=== PATIENT | female | born 1975 | race Two or more races ===

== ENCOUNTER 2023-01-21 10:02 | Emergency (ER) | payer OTHER ==
[~2023-01-21] VITALS: Ht 157.5 cm; Wt 69.1 kg
[2023-01-21 14:58] VITALS: BP 106/73; PULSE 82; RESP 16; TEMP 98.7; O2SAT 95
[2023-01-21] MEDS ORDERED: KETOROLAC TROMETH 60MG/2ML VIAL IM ONE (17:00)
[2023-01-21] MEDS ORDERED: IBUP1TAB5 PO (17:50)
[2023-01-21] MEDS ORDERED: CYCL-839 PO (17:50)
[2023-01-21] MEDS ORDERED: LIDO5PAD8 EX (17:52)
== END 2023-01-21 18:07 | disposition home or self-care (01) ==
LOC: ER 10:02
DX: M25.511 Pain in right shoulder (principal); M25.521 Pain in right elbow; X58.XXXA Exposure to other specified factors, initial encounter; Y93.89 Activity, other specified; Y92.89 Other specified places as the place of occurrence of the external cause; Y99.8 Other external cause status
CPT/HCPCS: 73030; 73080; 81025; 96372; 99284; J1885

== ENCOUNTER 2025-02-16 13:06 | Inpatient (IN) | payer MEDICAID ==
[~2025-02-16] VITALS: Ht 157.5 cm; Wt 57.4 kg
[~2025-02-16 13:06] MED LIST: CYCL-839 PO; DOCU-94 PO; FER325T PO; IBUP1TAB5 PO; LIDO5PAD12 EX; PANT40TA2 PO; POTA-36 PO; SUCR1SUS26 PO; ZOFR4T PO
--- NOTE | 2025-02-16 13:26 | ED.PDOC ---
GI ASSESSMENT HPI Comments This is a 49 year old female presenting to the ED with chief complaint of GI bleed. Patient reports that she has been experiencing hematemesis since Thursday after having an endoscopy performed along with associated melena for the past week. Patient denies any N/V/D, dizziness, fever, chills, chest pain, abdominal pain, SOB, or bloody stools. Chief Complaint: GI Bleed Time Seen by MD: 13:24 Primary Care Provider: NONE Reviewed Notes: Nurses Notes, Medications, Allergies Allergies: Coded Allergies: NO KNOWN ALLERGIES (Unverified , 01/21/23) Home Meds Active Scripts Potassium Chloride (POTASSIUM CHLORIDE CR) 10 Meq Tb, 10 MEQ PO DAILY for 30 Days, #30 TAB Prov:MARY SANDERSON 10/17/24 Ondansetron Odt 4MG Tab (ZOFRAN PO) 4 Mg Tb, 4 MG PO Q6HPRN PRN for 30 Days, #120 TAB ODT TAB-DISSOLVE IN MOUTH, THEN SWALLOW Prov:MARY SANDERSON 10/17/24 Docusate Sodium (Colace) 100 Mg Cap, 100 MG PO DAILY for 30 Days, #30 CAP Prov:MARY SANDERSON [facility] 10/17/24 Sucralfate (CARAFATE SUSP) 1 Gm/10 Ml Ss, 10 ML PO TIDWM for 30 Days, #600 ML 1 Refill Prov:MARY SANDERSON 10/17/24 Pantoprazole Sodium Sesquihydr (Protonix) 40 Mg Tab, 40 MG PO BID for 30 Days, #60 TAB Prov:MARY SANDERSON 10/17/24 Ferrous Sulfate (Ferrous Sulfate) 325 Mg Tab, 325 MG PO MWF for 90 Days, #36 TAB Prov:MARY SANDERSON [facility] 10/17/24 Lidocaine (Lidocaine Patch 5%) 5 % Pad, 1 APPLIC EX DAILY PRN, #30 PATCH 0 Refills Prov:MIKAEL PAGE [facility] 01/21/23 Ibuprofen Micronized (Ibuprofen) 600 Mg Tab, 600 MG PO Q8HPRN PRN, #30 TAB 0 Refills Prov:MIKAEL PAGE [facility] 01/21/23 Cyclobenzaprine Hcl (Cyclobenzaprine Hcl) 10 Mg Tab, 10 MG PO TID, #12 TAB 0 Refills Prov:MIKAEL PAGE [facility] 01/21/23 Information Source: Patient Mode of Arrival: Ambulatory Timing: Days Duration: Since onset Prehospital treatment: None Quality: None Vomitus: Bright Red Bood Stool: Blood Streaked Severity: Moderate Recent: None Recent Hx of: None Modifying Factors: Nothing Associated sign and symptoms: Hematemesis, Melena Past Medical History PAST MEDICAL HISTORY: Denies Surgical History (Other): Stomach surgery [employer] History: No Pertinent [employer] History Family History Family History: Reviewed,noncontributory to illness, Family hx of DM Social History Smoker: Non-Smoker Alcohol: Denies ETOH Use Drugs: Denies Drug Use Lives In: Home Constitutional: denies: chills, diaphoresis, fatigue, fever, malaise, sweats, weakness, others EENTM: denies: blurred vision, double vision, ear bleeding, ear discharge, ear drainage, ear pain, ear ringing, eye pain, eye redness, hearing loss, mouth pain, mouth swelling, nasal discharge, nose bleeding, nose congestion, nose pain, photophobia, tearing, throat pain, throat swelling, voice changes, others Respiratory: denies: cough, hemoptysis, orthopnea, SOB at rest, shortness of breath, SOB with excertion, stridor, wheezing, others Cardiovascular: denies: chest pain, dizzy spells, diaphoresis, Dyspnea on exertion, edema, irregular heart beat, left arm pain, lightheadedness, palpitations, PND, syncope, others Gastrointestinal: reports: hematemesis, melena; denies: abdomen distended, abdominal pain, blood streaked bowels, constipated, diarrhea, dysphagia, difficulty swallowing, nausea, poor appetite, poor fluid intake, rectal bleeding, rectal pain, vomiting, others Genitourinary: denies: abnormal vagina bleeding, burning, dyspareunia, dysuria, flank pain, frequency, hematuria, incontinence, pain, , vagina d ischarge, urgency, others Neurological: denies: dizziness, fainting, headache, left sided numbness, left sided weakness, numbness, paresthesia, pre-existing deficit, right sided numbness, right sided weakness, seizure, speech problems, tingling, tremors, weakness, others Musculoskeletal: denies: back pain, gout, joint pain, joint swelling, muscle pain, muscle stiffness, neck pain, others Integumetry: denies: bruises, change in color, change in hair/nails, dryness, laceration, lesions, lumps, rash, wounds, others Allergic/Immunocompromised: denies: Difficulty Healing, Frequent Infections, Hives, Itching, others Hematologic/Lymphatic: denies: anemia, blood clots, easy bleeding, easy bruising, swollen glands, others Endocrine: denies: excessive hunger, excessive sweating, excessive thirst, excessive urination, flushing, intolerance to cold, intolerance to heat, unexplained weight gain, unexplained weight loss, others Psychiatric: denies: anxiety, bipolar disorder, depression, hopeless, panic disorder, schizophrenia, sleepless, suicidal, others All Other Systems: Reviewed and Negative Physical Exam General Appearance: Moderate Distress HEENT: Normal ENT Inspection, Pharynx Normal, TMs Normal Neck: Full Range of Motion, Non-Tender, Normal, Normal Inspection Respiratory: Chest Non-Tender, Lungs Clear, No Accessory Muscle Use, No Respiratory Distress, Normal Breath Sounds Cardiovascular: No Edema, No JVD, No Murmur, No Gallop, Normal Peripheral Pulses, Regular Rate/Rhythm Breast Exam: Deferred Gastrointestinal: Diffuse, No Organomegaly, No Pulsatile Mass, Normal Bowel Sounds, Soft, Tenderness Genitalia: Deferred Pelvic: Deferred Rectal: Deferred Extremities: No calf tenderness, Normal capillary refill, Normal inspection, No rmal range of motion, Non-tender, No pedal edema Musculoskeletal : Apperance: Normal Neurologic: Alert, 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 Was a procedure done?: No GI differential Dx Differential Diagnosis: Gastritis/PUD, Gastroenteritis, Electrolyte Imbalance, Other (Upper GI bleed, lower GI bleed) X-Ray, Labs, Meds, VS Vital Signs Date Time Temp Pulse Resp B/P (MAP) Pulse Ox O2 Delivery O2 Flow Rate FiO2 02/16/25 13:08 97.9 92 19 116/83 97 97.9 Lab Test 02/16/25 13:46 Range/Units White Blood Count 6.7 4.4-10.8 10^3/uL Red Blood Count 3.97 L 4.0-5.20 10^6/uL Hemoglobin 10.8 L 12.2-16.2 g/dL Hematocrit 31.2 L 36.0-46.0 % Mean Corpuscular Volume 78.5 L 80.0-100.0 fL Mean Corpuscular Hemoglobin 27.2 L 28.0-32.0 pg Mean Corpuscular Hemoglobin Concent 34.7 32.0-36.0 g/dL Red Cell Distribution Width 17.0 H 11.8-14.3 % Platelet Count 326 140-450 10^3/uL Mean Platelet Volume 8.3 6.9-10.8 fL Neutrophils (%) (Auto) 68.7 37.0-80.0 % Lymphocytes (%) (Auto) 21.5 10.0-50.0 % Monocytes (%) (Auto) 8.0 0.0-12.0 % Eosinophils (%) (Auto) 1.0 0.0-7.0 % Basophils (%) (Auto) 0.8 0.0-2.0 % Neutrophils # (Auto) 4.6 1.6-8.6 10 ^3/uL Lymphocytes # (Auto) 1.4 0.4-5.4 10 ^3/uL Monocytes # (Auto) 0.5 0-1.3 10 ^3/uL Eosinophils # (Auto) 0.1 0-0.8 10 ^3/uL Basophils # (Auto) 0.1 0-0.2 10 ^3/uL Nucleated Red Blood Cells 0.1 % Prothrombin Time 10.9 9.3-11.8 sec Prothrombin Time INR 1.03 0.9-1.15 Activated Partial Thromboplast Time 26.7 24.5-34.5 SEC Sodium Level 144 136-145 mmol/L Potassium Level 3.6 3.5-5.1 mmol/L Chloride Level 109 H 98-107 mmol/L Carbon Dioxide Level 25 20-31 mmol/L Anion Gap 10 5-15 Blood Urea Nitrogen 15 9-23 mg/dL Creatinine 0.82 0.550-1.02 mg/dL Glomerular Filtration Rate Calc 87 >90 mL/min BUN/Creatinine Ratio 18.3 10.0-20.0 Serum Glucose 94 74-106 mg/dL Calcium Level 9.4 8.7-10.4 mg/dL CT Abd/Pel indicates: No evidence of Acute abdominopelvic abnormalities. Moderate size hiatal hernia with questionable postsurgical changes of the herniated stomach. The partially visualized distal esophagus is moderately distended and fluid-filled. Colonic diverticulosis without diverticulitis. Punctate nonobstructing left renal calculi. The patient's CBC shows anemia with a hemoglobin of 10.8 hematocrit of 31.2 The chemistry panel is within normal limits At this time, the patient is being admitted with a diagnosis of GI bleed and abdominal pain Images Reviewed?: Images reviewed and evaluated by me Time of 1ST Reevaluation: 15:59 Reevaluation 1ST: Unchanged Patient Education/Counseling: Diagnosis, Treatment, Prognosis Family Education/Counseling: No Family Present SEPSIS Sepsis Screen Date sepsis recognized/suspect: Feb 16, 2025 Time Sepsis recognized/suspect: 1312 Recent Procedure: No On Antibiotic Therapy: No Respiratory Rate >20: No Heart Rate >90: No Temp<36 C (96.8 F) or >38.3 C: No SBP <90 or MAP <65 mmHG: No New Acute Mental Status Change: No Is the patient on CPAP, BIPAP,: No Physician Orders Heplock Iv (02/16/25 13:29) Ct Ab Pel Wo Con-No Oral Or Iv (02/16/25 13:29) Vital Signs Date Time Temp Pulse Resp B/P (MAP) Pulse Ox O2 Delivery O2 Flow Rate FiO2 02/16/25 13:08 97.9 92 19 116/83 97 97.9 Laboratory Tests Test 02/16/25 13:46 White Blood Count 6.7 10^3/uL (4.4-10.8) Departure 1 Departure Time of Disposition: 16:00 Impression: Primary Impression: Acute abdominal pain Additional Impression: Upper GI bleed Disposition: ADMITTED INPATIENT Admit to: Med Surg Condition: Fair Critical Care Note Critical Care Time?: Yes (45 min-critical care time only) Stability Stability form required: Yes Unstable for transfer: ED Physician Assesment (Clinical assesment) Heart Score Heart Score: Heart Score Response (Comments) Value History N/A 0 EKG N/A 0 Age N/A 0 Risk Factors N/A 0 Troponin N/A 0 Total 0 I personally scribed for LUDMILA ABEL MD ([email or web address]) on 02/16/25 at 13:26. Electronically submitted by Jeronimo Dempsey ([email or web address]). I personally scribed for LUDMILA ABEL MD ([email or web address]) on 02/16/25 at 14:53. Electronically submitted by Jeronimo Dempsey ([email or web address]). LUDMILA ABEL MD Feb 16, 2025 13:26
[2025-02-16 14:05] LABS: Hematocrit 31.2 % (36.0-46.0); Hemoglobin 10.8 g/dL (12.2-16.2); Mean Corpuscular Hemoglobin 27.2 pg (28.0-32.0); Mean Corpuscular Volume 78.5 fL (80.0-100.0); Nucleated Red Blood Cells % 0.1 %
--- NOTE | 2025-02-16 14:05 | DVH ---
Exam: CT CT AB PEL WO CON-NO ORAL OR IV History: GI bleed Comparison Study: CT abdomen and pelvis 10/12/2024 AND PELVIS without IV contrast. Axial, coronal and sagittal multiplanar reformats were obtained from the axial data set by the technologist. Radiation Dose Information: CT Dose: CTDI volume is 5.72 mGy. Dose-length product is 289.35 mGy*cm FINDINGS: The lung bases are clear. Partially visualized heart is unremarkable. Liver, spleen, gallbladder, pancreas and adrenal glands unremarkable. 5 mm hypodense pancreatic body lesion noted on imaging of 10/12/2024 is not well- visualized on current noncontrast study. Punctate nonobstructing left renal calculi. Otherwise, kidneys, ureters and urinary bladder are unremarkable. Uterus and adnexa are unremarkable. The distal esophagus is fluid-filled and moderately distended. Moderate size hiatal hernia. Questionable Postsurgical changes of the herniated stomach. The remainder of the stomach is unremarkable. Small bowel loops unremarkable. Appendix is unremarkable. Small to moderate amount of fecal material within the colon with moderate amount of fecal material within the rectum. Colonic diverticulosis without diverticulitis. No evidence of intraperitoneal free air or free fluid. No evidence of aortic aneurysm. No significant lymphadenopathy. Small fat containing umbilical hernia. Soft tissues unremarkable. IMPRESSION: No evidence of Acute abdominopelvic abnormalities. Moderate size hiatal hernia with questionable postsurgical changes of the herniated stomach. The partially visualized distal esophagus is moderately distended and fluid-filled. Colonic diverticulosis without diverticulitis. Punctate nonobstructing left renal calculi.
[2025-02-16 14:11] LABS: Potassium 3.6 mmol/L (3.5-5.1); Sodium 144 mmol/L (136-145)
[2025-02-16 14:12] LABS: Anion Gap 10 (5-15); Calcium 9.4 mg/dL (8.7-10.4); Carbon Dioxide 25 mmol/L (20-31)
[2025-02-16 14:13] LABS: Chloride 109 mmol/L (98-107)
[2025-02-16 14:17] LABS: BUN/Creatinine Ratio 18.3 (10.0-20.0); Blood Urea Nitrogen 15 mg/dL (9-23); Glucose 94 mg/dL (74-106)
[2025-02-16 14:25] LABS: INR 1.03 (0.9-1.15); Partial Thromboplastin Time 26.7 SEC (24.5-34.5); Prothrombin Time 10.9 sec (9.3-11.8)
[2025-02-16] MEDS: PANTOPRAZOLE 40 MG/10 ML VIAL INJ IV ONE (14:30)
[2025-02-16] MEDS ORDERED: ONDANSETRON HCL 4 MG/2 ML VIAL IV PRN (14:30)
--- NOTE | 2025-02-16 18:36 | DVHHP2 ---
History of Present Illness Reason for Visit: GI bleed History of Present Illness 49-year-old female presents for evaluation of GI bleed. Patient reports vomiting blood today. She states having an endoscopy performed two days ago with Dr. Murphy. She reports having melena over the past five days. Reports no dizziness, shortness for breath or chest pain. Patient not currently on any blood thinners Past Medical History Denies Family History Noncontributory Smoke: No ALCOHOL: none Drugs: None Lives: with Family Review of Systems Review of Systems Review of systems are currently negative otherwise addressed in HPI. Allergies: Coded Allergies: NO KNOWN ALLERGIES (Unverified , 01/21/23) Medications Current Medications Medications Dose Ordered Sig/Lianne Route Start Time Stop Time Status Last Admin Dose Admin Pantoprazole Sodium 40 mg DAILY IV 02/17/25 10:00 Ondansetron HCl 4 mg Q4HP PRN IV 02/16/25 14:30 Exam Vital Signs Vital Signs Date Time Temp Pulse Resp B/P (MAP) Pulse Ox O2 Delivery O2 Flow Rate FiO2 02/16/25 17:54 99.1 74 20 113/84 (94) 99 99.1 02/16/25 17:54 Room Air Exam Gen: 49-year-old female in mild distress Skin: Warm, dry, normal color and texture, no rash. HEENT: Normocephalic atraumatic, mucous membranes moist and pink. Neck: Cervical and supraclavicular nodes normal without enlargement, trachea is midline, thyroid gland is normal without masses. Pulmonary: Clear to auscultation and percussion bilaterally. Cardiac: Regular rate and rhythm. No murmur Abdomen: Soft, nontender, nondistended, bowel sounds present all 4 quadrants, no guarding, no rigidity, no organomegaly. Extremities: No cyanosis, clubbing, no edema Neuro: Cranial nerves II through XII grossly intact, normal affect and speech, no focal motor deficits. Labs/Xrays ORDERING PHYSICIAN: LUDMILA ABEL MD PROCEDURE(s): ABPL - CT AB PEL WO CON-NO ORAL OR IV REASON: GI bleed ORDER NUMBER(s): [id number], ACCESSION NUMBER(s): [id number] Exam: CT CT AB PEL WO CON-NO ORAL OR IV History: GI bleed Comparison Study: CT abdomen and pelvis 10/12/2024 AND PELVIS without IV contrast. Axial, coronal and sagittal multiplanar reformats were obtained from the axial data set by the technologist. Radiation Dose Information: CT Dose: CTDI volume is 5.72 mGy. Dose-length product is 289.35 mGy*cm FINDINGS: The lung bases are clear. Partially visualized heart is unremarkable. Liver, spleen, gallbladder, pancreas and adrenal glands unremarkable. 5 mm hypodense pancreatic body lesion noted on imaging of 10/12/2024 is not well- visualized on current noncontrast study. Punctate nonobstructing left renal calculi. Otherwise, kidneys, ureters and urinary bladder are unremarkable. Uterus and adnexa are unremarkable. The distal esophagus is fluid-filled and moderately distended. Moderate size hiatal hernia. Questionable Postsurgical changes of the herniated stomach. The remainder of the stomach is unremarkable. Small bowel loops unremarkable. Appendix is unremarkable. Small to moderate amount of fecal material within the colon with moderate amount of fecal material within the rectum. Colonic diverticulosis without diverticulitis. No evidence of intraperitoneal free air or free fluid. No evidence of aortic aneurysm. No significant lymphadenopathy. Small fat containing umbilical hernia. Soft tissues unremarkable. IMPRESSION: No evidence of Acute abdominopelvic abnormalities. Moderate size hiatal hernia with questionable postsurgical changes of the herniated stomach. The partially visualized distal esophagus is moderately distended and fluid- filled. Colonic diverticulosis without diverticulitis. Punctate nonobstructing left renal calculi. Labs Test 02/16/25 13:46 Range/Units White Blood Count 6.7 4.4-10.8 10^3/uL Red Blood Count 3.97 L 4.0-5.20 10^6/uL Hemoglobin 10.8 L 12.2-16.2 g/dL Hematocrit 31.2 L 36.0-46.0 % Mean Corpuscular Volume 78.5 L 80.0-100.0 fL Mean Corpuscular Hemoglobin 27.2 L 28.0-32.0 pg Mean Corpuscular Hemoglobin Concent 34.7 32.0-36.0 g/dL Red Cell Distribution Width 17.0 H 11.8-14.3 % Platelet Count 326 140-450 10^3/uL Mean Platelet Volume 8.3 6.9-10.8 fL Neutrophils (%) (Auto) 68.7 37.0-80.0 % Lymphocytes (%) (Auto) 21.5 10.0-50.0 % Monocytes (%) (Auto) 8.0 0.0-12.0 % Eosinophils (%) (Auto) 1.0 0.0-7.0 % Basophils (%) (Auto) 0.8 0.0-2.0 % Neutrophils # (Auto) 4.6 1.6-8.6 10 ^3/uL Lymphocytes # (Auto) 1.4 0.4-5.4 10 ^3/uL Monocytes # (Auto) 0.5 0-1.3 10 ^3/uL Eosinophils # (Auto) 0.1 0-0.8 10 ^3/uL Basophils # (Auto) 0.1 0-0.2 10 ^3/uL Nucleated Red Blood Cells 0.1 % Prothrombin Time 10.9 9.3-11.8 sec Prothrombin Time INR 1.03 0.9-1.15 Activated Partial Thromboplast Time 26.7 24.5-34.5 SEC Sodium Level 144 136-145 mmol/L Potassium Level 3.6 3.5-5.1 mmol/L Chloride Level 109 H 98-107 mmol/L Carbon Dioxide Level 25 20-31 mmol/L Anion Gap 10 5-15 Blood Urea Nitrogen 15 9-23 mg/dL Creatinine 0.82 0.550-1.02 mg/dL Glomerular Filtration Rate Calc 87 >90 mL/min BUN/Creatinine Ratio 18.3 10.0-20.0 Serum Glucose 94 74-106 mg/dL Calcium Level 9.4 8.7-10.4 mg/dL SEPSIS Sepsis Screen Date sepsis recognized/suspect: Feb 16, 2025 Time Sepsis recognized/suspect: 1754 Recent Procedure: No On Antibiotic Therapy: No Respiratory Rate >20: No Heart Rate >90: No Temp<36 C (96.8 F) or >38.3 C: No SBP <90 or MAP <65 mmHG: No New Acute Mental Status Change: No Is the patient on CPAP, BIPAP,: No Physician Orders Heplock Iv (02/16/25 13:29) Ct Ab Pel Wo Con-No Oral Or Iv (02/16/25 13:29) * Gi Dvh Drum Straightener (02/16/25 14:17) Pantoprazole (Protonix) (02/17/25 10:00) Gastric Occult Blood (02/16/25 14:17) Stool Occult Blood (02/16/25 14:17) Sodium Chloride 0.9% (02/16/25 14:30) Admit (02/16/25 14:17) Ondansetron Hcl (Zofran) (02/16/25 14:30) Complete Blood Count (02/17/25 04:00) Npo (Nothing By Mouth) Diet (02/16/25 Dinner) Condition: Stable (02/16/25 14:17) Bedrest With Bathroom Privileg (02/16/25 14:17) Basic Metabolic Panel (02/17/25 04:00) Vital Signs Date Time Temp Pulse Resp B/P (MAP) Pulse Ox O2 Delivery O2 Flow Rate FiO2 02/16/25 17:54 99.1 74 20 113/84 (94) 99 99.1 02/16/25 17:54 77 20 99 Room Air 02/16/25 13:08 97.9 92 19 116/83 97 97.9 Laboratory Tests Test 02/16/25 13:46 White Blood Count 6.7 10^3/uL (4.4-10.8) Medications Medications Dose Ordered Sig/Lianne Route Start Time Stop Time Status Last Admin Dose Admin Pantoprazole Sodium 40 mg ONCE ONCE IV 02/16/25 14:30 02/16/25 15:27 DC 02/16/25 14:30 40 MG Assessment/Plan Assessment/Plan Assessment GI bleed Plan Admit the patient to [facility] to the hospitalist GI consultation NPO Maintenance IV fluids Continue treatment per orders. Plan discussed with: Patient My Orders Orders - NALINI STALLWORTH Procedure Category Date Status Time * Gi Dvh Drum Straightener CONS 02/16/25 Transmitted 14:17 Pantoprazole PHA 02/17/25 In Process (Protonix) 10:00 Gastric Occult Blood LAB 02/16/25 Logged 14:17 Stool Occult Blood LAB 02/16/25 Logged 14:17 Sodium Chloride 0.9% PHA 02/16/25 In Process 14:30 Admit ADMIT 02/16/25 Transmitted 14:17 Ondansetron Hcl PHA 02/16/25 In Process (Zofran) 14:30 Complete Blood Count LAB 02/17/25 Verified 04:00 Npo (Nothing By DIET 02/16/25 Transmitted Mouth) Diet Dinner Condition: Stable LORA 02/16/25 In Process 14:17 Bedrest With Bathroom LORA 02/16/25 In Process Privileg 14:17 Basic Metabolic Panel LAB 02/17/25 Verified 04:00 Date of Service: Feb 16, 2025 Billing Provider: NAILNI STALLWORTH Common Visit Codes: [id number] INP/OBS CARE (HIGH) NALINI STALLWORTH Feb 16, 2025 18:36
[2025-02-16 18:48] VITALS: RESP 17
[2025-02-16] MEDS: SODIUM CHLORIDE 0.9% 1,000 ML IV ONE (20:37)
[2025-02-16 21:00] VITALS: BP 100/76; PULSE 73; RESP 17; TEMP 98.3; O2SAT 98
[2025-02-16] MEDS ORDERED: OMEP20TA PO (21:35)
[2025-02-17] VITALS (7 sets, daily range): BP systolic 95–104; BP diastolic 51–71; PULSE 63–69; RESP 16–18; TEMP 98.2–98.6; O2SAT 97–99
[2025-02-17 06:09] LABS: Hematocrit 28.2 % (36.0-46.0); Hemoglobin 9.6 g/dL (12.2-16.2); Mean Corpuscular Hemoglobin 27.1 pg (28.0-32.0); Mean Corpuscular Volume 79.1 fL (80.0-100.0); Nucleated Red Blood Cells % 0.0 %
[2025-02-17 06:20] LABS: Sodium 144 mmol/L (136-145)
[2025-02-17 06:21] LABS: Anion Gap 10 (5-15); Carbon Dioxide 24 mmol/L (20-31)
[2025-02-17 06:22] LABS: Calcium 8.7 mg/dL (8.7-10.4)
[2025-02-17 06:24] LABS: Chloride 110 mmol/L (98-107); Potassium 3.2 mmol/L (3.5-5.1)
[2025-02-17 06:26] LABS: BUN/Creatinine Ratio 21.3 (10.0-20.0); Blood Urea Nitrogen 13 mg/dL (9-23); Glucose 80 mg/dL (74-106)
[2025-02-17] MEDS: PANTOPRAZOLE 40 MG/10 ML VIAL INJ IV SCH (10:31)
--- NOTE | 2025-02-17 13:14 | DVHPN2 ---
Reviewed: Care Plan, H&P, Labs, Medications, Previous Orders, Radiology Changes from previous H/P or p: No Changes Objective Vitals Vital Signs Date Time Temp Pulse Resp B/P (MAP) Pulse Ox O2 Delivery O2 Flow Rate FiO2 02/17/25 09:00 98.4 69 16 100/71 (81) 98 98.4 02/17/25 08:00 Room Air* 0 21 Intake/Output Intake and Output 02/17/25 07:00 Intake Total 0 ml Balance 0 ml Intake Oral 0 ml # Voids 4 Medications Current Medications Medications Dose Ordered Sig/Lianne Route Start Time Stop Time Status Last Admin Dose Admin Pantoprazole Sodium 40 mg DAILY IV 02/17/25 10:00 02/17/25 10:31 40 MG Ondansetron HCl 4 mg Q4HP PRN IV 02/16/25 14:30 Laboratory Results Laboratory Tests 02/17/25 04:38 Chemistry Test 02/16/25 13:46 02/17/25 04:38 Calcium Level 9.4 mg/dL (8.7-10.4) 8.7 mg/dL (8.7-10.4) Coagulation Test 02/16/25 13:46 Prothrombin Time 10.9 sec (9.3-11.8) Prothrombin Time INR 1.03 (0.9-1.15) Activated Partial Thromboplast Time 26.7 SEC (24.5-34.5) Labs and/or images reviewed: Labs reviewed by me, Image(s) reviewed by me Assessment/Plan Assessment/Plan Acute upper GI bleed hemoglobin 10.9 consult for History of EGD by Dr. Nona Murphy 2 days back Time spent 25 minutes Plan discussed with: Patient Date of Service: Feb 17, 2025 Billing Provider: BENIGNO FLETCHER MD Common Visit Codes: [id number] INP/OBS CARE(LOW) BENIGNO FLETCHER MD Feb 17, 2025 13:14
[2025-02-17] MEDS ORDERED: POTASSIUM PHOSPHATE 22 MEQ in SODIUM CHL 0.9% 100 ML IV ONE (17:15)
[2025-02-17] MEDS ORDERED: CLINIMIX PER PHARMACY 0 ML IV SCH (17:30)
[2025-02-17] MEDS: POTASSIUM CHL 20MEQ/100ML 100 ML IV ONE (18:40)
--- NOTE | 2025-02-17 20:05 | DVHINCON2 ---
Date of service: Feb 17, [address] Gonzalez Reason for Consultation Abdominal pain difficult to swallow and GI bleed History of Present Illness This 49-year-old female presented to the emergency room with complaints of some some GI bleed patient has had history of achalasia for which she had surgery in [facility] also had problems with swallowing had some GI x-rays she does not know or remember were but had an outpatient endoscopic evaluation by Dr. Murphy which showed there was evidence of narrowing with distention esophagus in the small esophageal ulcer of the area of the anastomosis without any bleeding Patient denied any gross hematemesis but had some mild coffee-ground material as well as some undigested food patient has got difficulty swallowing A CAT scan showed there was evidence of esophageal fullness with surgical changes and with partial obstruction of the distal esophagus possibility of achalasia can not be excluded Patient has history of achalasia in the past for which she had workup and has been evaluated and had surgery at [facility] Past Medical History History of achalasia with surgery at [facility] had some problems against with no esophageal obstruction and had endoscopy by in in October as well as recently which showed there was evidence of obstruction as well as ulceration in the distal esophagus. At the anastomotic area Past Surgical History Achalasia surgery possibly Heller myotomy at [facility] Family History: Diabetes mellitus G8 FATHER, Family History Noncontributory Social History Denies smoking or drinking Allergies: Coded Allergies: NO KNOWN ALLERGIES (Unverified , 01/21/23) Home Meds Active Scripts Potassium Chloride (POTASSIUM CHLORIDE CR) 10 Meq Tb, 10 MEQ PO DAILY for 30 Days, #30 TAB Prov:MARCELINO SANDERSONAleksandrADVENTHEALTH LAKE PLACID 10/17/24 Ondansetron Odt 4MG Tab (ZOFRAN PO) 4 Mg Tb, 4 MG PO Q6HPRN PRN for 30 Days, #120 TAB ODT TAB-DISSOLVE IN MOUTH, THEN SWALLOW Prov:ZAHRAA SANDERSONADVENTHEALTH LAKE PLACID 10/17/24 Docusate Sodium (Colace) 100 Mg Cap, 100 MG PO DAILY for 30 Days, #30 CAP Prov:[facility] 10/17/24 Ferrous Sulfate (Ferrous Sulfate) 325 Mg Tab, 325 MG PO MWF for 90 Days, #36 TAB Prov:ZAHRAA SANDERSONADVENTHEALTH [facility]AC[facility] 10/17/24 Ibuprofen Micronized (Ibuprofen) 600 Mg Tab, 600 MG PO Q8HPRN PRN, #30 TAB 0 Refills Prov:MIKAEL PAGE ENTERTAINMENT MUSICIAN 01/21/23 Reported Medications Omeprazole (Gnp Omeprazole) 20 Mg Tab, 1 TAB PO DAILY, #90 TAB 1 Refill 02/16/25 Current Medications Current Medications Medications (Trade) Dose Ordered Sig/Lianne Route PRN Reason Start Time Stop Time Status Last Admin Pantoprazole Sodium (Protonix) 40 mg DAILY IV 02/17/25 10:00 02/17/25 10:31 Amino Acids 0 ml @ 0 mls/hr PER PHARMACY IV 02/17/25 17:30 Metoclopramide HCl (Reglan Injection) 5 mg Q8HR IV 02/17/25 22:00 Amino Acids/ Electrolytes/ Dextrose 1,000 ml @ 41 mls/hr DAILY@2200 IV 02/17/25 22:00 Diagnostic Test (Pha) (Accu-Chek Comfort Curve T) 1 strip Q6HR 02/18/25 00:00 Insulin Human Regular (InsuLIN R) FOLLOW SLIDING SCALE Q6HR SC 02/18/25 00:00 Dextrose 50 ml UD IV 02/17/25 22:00 Review of Systems Noncontributory Vital Signs Vital Signs Date Time Temp Pulse Resp B/P (MAP) Pulse Ox O2 Delivery O2 Flow Rate FiO2 02/17/25 17:00 98.3 64 18 104/67 (79) 98 98.3 02/17/25 08:00 Room Air* 0 21 Physical Exam Moderately built and nourished female in no acute distress Vitals stable Lungs are clear Cardiovascular unremarkable Abdomen is soft no tenderness no rigidity no guarding Extremities no edema no varicosities Neurological no focal deficit Labs/Diagnostic Data Labs Test 02/17/25 04:38 02/16/25 13:46 Range/Units White Blood Count 5.9 4.4-10.8 10^3/uL Red Blood Count 3.56 L 4.0-5.20 10^6/uL Hemoglobin 9.6 L 12.2-16.2 g/dL Hematocrit 28.2 L 36.0-46.0 % Mean Corpuscular Volume 79.1 L 80.0-100.0 fL Mean Corpuscular Hemoglobin 27.1 L 28.0-32.0 pg Mean Corpuscular Hemoglobin Concent 34.2 32.0-36.0 g/dL Red Cell Distribution Width 16.5 H 11.8-14.3 % Platelet Count 272 140-450 10^3/uL Mean Platelet Volume 8.6 6.9-10.8 fL Neutrophils (%) (Auto) 65.4 37.0-80.0 % Lymphocytes (%) (Auto) 24.5 10.0-50.0 % Monocytes (%) (Auto) 7.5 0.0-12.0 % Eosinophils (%) (Auto) 1.9 0.0-7.0 % Basophils (%) (Auto) 0.7 0.0-2.0 % Neutrophils # (Auto) 3.9 1.6-8.6 10 ^3/uL Lymphocytes # (Auto) 1.4 0.4-5.4 10 ^3/uL Monocytes # (Auto) 0.4 0-1.3 10 ^3/uL Eosinophils # (Auto) 0.1 0-0.8 10 ^3/uL Basophils # (Auto) 0 0-0.2 10 ^3/uL Nucleated Red Blood Cells 0.0 % Sodium Level 144 136-145 mmol/L Potassium Level 3.2 L 3.5-5.1 mmol/L Chloride Level 110 H 98-107 mmol/L Carbon Dioxide Level 24 20-31 mmol/L Anion Gap 10 5-15 Blood Urea Nitrogen 13 9-23 mg/dL Creatinine 0.61 0.550-1.02 mg/dL Glomerular Filtration Rate Calc 109 >90 mL/min BUN/Creatinine Ratio 21.3 H 10.0-20.0 Serum Glucose 80 74-106 mg/dL Calcium Level 8.7 8.7-10.4 mg/dL Prothrombin Time 10.9 9.3-11.8 sec Prothrombin Time INR 1.03 0.9-1.15 Activated Partial Thromboplast Time 26.7 24.5-34.5 SEC Assessment 49-year-old female with a history of achalasia status post surgery now with complaints of esophageal stasis from esophageal stenosis of the anastomotic area of achalasia possibly Heller myotomy at [facility] CT scan showed evidence of esophageal stasis with blockage possibly from the achalasia or an and/or postsurgical stricture Apparently had recent EGD which showed evidence of esophageal stasis and narrowing with possible achalasia and anastomotic ulcer Clinical impression is possible achalasia anastomotic stricture with stasis and esophageal blockage and probable anastomotic ulcer Plan/Recommendation Patient apparently had some radiological evaluation elsewhere but she does not remember where and has not have the details. Had recent EGD which showed a possible achalasia with a blockage in the esophageal stasis Suggestions are We will recommend transfer to higher level of care like [facility] where she had the surgery for further evaluation and surgical consideration or other method of treatment for the achalasia or stricture as necessary. Case was discussed with Dr. Murphy who also agreed that the patient should be transferred to level of care like [facility] where she had the surgery for further evaluation and further treatment of this persistent achalasia or stricture with obstruction and stasis In the meantime we will recommend TPN and NPO except sips of water or sips of clear liquids. We will watch closely for hemoglobin levels Treat with PPIs and if necessary Reglan Thank you Dr. Burris Plan discussed with: Patient BERE BURRIS MD Feb 17, 2025 20:05
[2025-02-17] MEDS: AMINO ACID INFUSION IN D10W 1,000 ML IV SCH (21:59)
[2025-02-17] MEDS: METOCLOPRAMIDE HCL 5MG/ml INJ 2ml VIAL IV SCH (21:59)
[2025-02-17] MEDS ORDERED: DEXTROSE (50%) 50ML SYRG IV SCH (22:00)
[2025-02-17] MEDS: ACCU-CHEK COMFORT CURVE STRIP VI SCH (23:53)
[2025-02-17] MEDS: InsuLIN REG 1unit/0.01ml Soln (100units/ml) SC SCH (23:53)
[2025-02-18 01:00] VITALS: BP 100/63; PULSE 63; RESP 16; TEMP 98.3; O2SAT 99
[2025-02-18 05:00] VITALS: BP 104/75; PULSE 60; RESP 17; TEMP 98.3; O2SAT 98
[2025-02-18 06:34] LABS: Hematocrit 30.7 % (36.0-46.0); Hemoglobin 10.7 g/dL (12.2-16.2); Mean Corpuscular Hemoglobin 27.5 pg (28.0-32.0); Mean Corpuscular Volume 78.9 fL (80.0-100.0); Nucleated Red Blood Cells % 0.0 %
[2025-02-18 06:35] LABS: Magnesium 2.3 mg/dL (1.6-2.6)
[2025-02-18 06:36] LABS: Alanine Aminotransferase 10 U/L (7-40); Alkaline Phosphatase 69 U/L (46-116); Anion Gap 13 (5-15); BUN/Creatinine Ratio 14.5 (10.0-20.0); Calcium 8.9 mg/dL (8.7-10.4); Carbon Dioxide 22 mmol/L (20-31); Chloride 107 mmol/L (98-107); Glucose 101 mg/dL (74-106); Sodium 142 mmol/L (136-145); Total Protein 6.3 g/dL (5.7-8.2)
[2025-02-18 06:37] LABS: Albumin 4.0 g/dL (3.2-4.8)
[2025-02-18 06:38] LABS: Bilirubin, Total 0.5 mg/dL (0.2-1.0)
[2025-02-18 06:39] LABS: Blood Urea Nitrogen 9 mg/dL (9-23); Potassium 3.2 mmol/L (3.5-5.1)
[2025-02-18 08:00] VITALS: PULSE 88; RESP 14; O2SAT 98
[2025-02-18 09:14] VITALS: BP 116/77; PULSE 62; RESP 17; TEMP 98.1; O2SAT 98
--- NOTE | 2025-02-18 10:21 | DVHPN2 ---
Reviewed: Care Plan, H&P, Labs, Medications, Previous Orders, Radiology Changes from previous H/P or p: No Changes Objective Vitals Vital Signs Date Time Temp Pulse Resp B/P (MAP) Pulse Ox O2 Delivery O2 Flow Rate FiO2 02/18/25 09:14 98.1 62 17 116/77 (90) 98 98.1 02/17/25 20:00 Room Air* 0 21 Intake/Output Intake and Output 02/18/25 07:00 Intake Total 150 ml Balance 150 ml Intake Oral 150 ml # Voids 4 Medications Current Medications Medications Dose Ordered Sig/Lianne Route Start Time Stop Time Status Last Admin Dose Admin Pantoprazole Sodium 40 mg DAILY IV 02/17/25 10:00 02/17/25 10:31 40 MG Ondansetron HCl 4 mg Q4HP PRN IV 02/16/25 14:30 Amino Acids 0 ml @ 0 mls/hr PER PHARMACY IV 02/17/25 17:30 Metoclopramide HCl 5 mg Q8HR IV 02/17/25 22:00 02/18/25 05:15 5 MG Amino Acids/ Electrolytes/ Dextrose 1,000 ml @ 41 mls/hr DAILY@2200 IV 02/17/25 22:00 02/17/25 21:59 41 MLS/HR Diagnostic Test (Pha) 1 strip Q6HR 02/18/25 00:00 02/18/25 05:07 1 STRIP Insulin Human Regular FOLLOW SLIDING SCALE Q6HR SC 02/18/25 00:00 Dextrose 50 ml UD IV 02/17/25 22:00 Laboratory Results Laboratory Tests 02/18/25 04:58 Chemistry Test 02/18/25 04:58 Albumin 4.0 g/dL (3.2-4.8) Calcium Level 8.9 mg/dL (8.7-10.4) Magnesium Level 2.3 mg/dL (1.6-2.6) Phosphorus Level 4.2 mg/dL (2.4-5.1) Total Protein 6.3 g/dL (5.7-8.2) LFT Test 02/18/25 04:58 Alanine Aminotransferase (ALT) 10 U/L (7-40) Alkaline Phosphatase 69 U/L (46-116) Aspartate Amino Transferase (AST) 19 U/L (13-40) Total Bilirubin 0.5 mg/dL (0.2-1.0) Labs and/or images reviewed: Labs reviewed by me, Image(s) reviewed by me Assessment/Plan Assessment/Plan Acute upper GI bleed hemoglobin 10.9 consult for appreciated, hemoglobin stable at 10.7 Achalasia versus stricture of the esophagus, Dr. Burris advised to transfer the patient to [facility] [place] for higher level of care where she had original surgery History of EGD by Dr. Nona Murphy 2 days back Time spent 25 minutes Discussed discharge plan with the help of mantel craftsman GIUSEPPE Whitley at bedside Will DC home and she will go to [facility] [place] herself on Thursday as she is stable at the present time Plan discussed with: Patient My Orders Orders - BENIGNO FLETCHER MD Procedure Category Date Status Time * Gi Dvh Effervescent Salts Compounder CONS 02/17/25 Transmitted 13:07 Esophagus XY 02/17/25 Logged Gastrografin Swallow 14:38 Date of Service: Feb 18, 2025 Billing Provider: BENIGNO FLETCHER MD Common Visit Codes: [id number] INP/OBS CARE(HIGH) BENIGNO FLETCHER MD Feb 18, 2025 10:21
--- NOTE | 2025-02-18 10:25 | DVHDS2 ---
Discharge Summary Date of Admission Feb 16, 2025 at 14:17 Date of Discharge: Feb 18, 2025 Admitting Diagnosis Mild Hematemesis Wounds: None Labs/Diagnostic Data: Laboratory Results Test 02/18/25 05:04 02/18/25 04:58 02/16/25 13:46 POC Glucose 108 mg/dl (70-106) White Blood Count 5.7 10^3/uL (4.4-10.8) Red Blood Count 3.89 10^6/uL (4.0-5.20) Hemoglobin 10.7 g/dL (12.2-16.2) Hematocrit 30.7 % (36.0-46.0) Mean Corpuscular Volume 78.9 fL (80.0-100.0) Mean Corpuscular Hemoglobin 27.5 pg (28.0-32.0) Mean Corpuscular Hemoglobin Concent 34.8 g/dL (32.0-36.0) Red Cell Distribution Width 17.0 % (11.8-14.3) Platelet Count 312 10^3/uL (140-450) Mean Platelet Volume 8.7 fL (6.9-10.8) Neutrophils (%) (Auto) 63.5 % (37.0-80.0) Lymphocytes (%) (Auto) 26.0 % (10.0-50.0) Monocytes (%) (Auto) 8.4 % (0.0-12.0) Eosinophils (%) (Auto) 1.5 % (0.0-7.0) Basophils (%) (Auto) 0.6 % (0.0-2.0) Neutrophils # (Auto) 3.7 10 ^3/uL (1.6-8.6) Lymphocytes # (Auto) 1.5 10 ^3/uL (0.4-5.4) Monocytes # (Auto) 0.5 10 ^3/uL (0-1.3) Eosinophils # (Auto) 0.1 10 ^3/uL (0-0.8) Basophils # (Auto) 0 10 ^3/uL (0-0.2) Nucleated Red Blood Cells 0.0 % Sodium Level 142 mmol/L (136-145) Potassium Level 3.2 mmol/L (3.5-5.1) Chloride Level 107 mmol/L (98-107) Carbon Dioxide Level 22 mmol/L (20-31) Anion Gap 13 (5-15) Blood Urea Nitrogen 9 mg/dL (9-23) Creatinine 0.62 mg/dL (0.550-1.02) Glomerular Filtration Rate Calc 108 mL/min (>90) BUN/Creatinine Ratio 14.5 (10.0-20.0) Serum Glucose 101 mg/dL (74-106) Calcium Level 8.9 mg/dL (8.7-10.4) Phosphorus Level 4.2 mg/dL (2.4-5.1) Magnesium Level 2.3 mg/dL (1.6-2.6) Total Bilirubin 0.5 mg/dL (0.2-1.0) Aspartate Amino Transferase (AST) 19 U/L (13-40) Alanine Aminotransferase (ALT) 10 U/L (7-40) Alkaline Phosphatase 69 U/L (46-116) Total Protein 6.3 g/dL (5.7-8.2) Albumin 4.0 g/dL (3.2-4.8) Prothrombin Time 10.9 sec (9.3-11.8) Prothrombin Time INR 1.03 (0.9-1.15) Activated Partial Thromboplast Time 26.7 SEC (24.5-34.5) Other Laboratory Tests 02/18/25 04:58 Brief Hx & Hospital Course: 49-year-old female had surgery for esophageal stricture and achalasia at [facility]. She recently had EGD by Dr. Nona Murphy came in complaining of mild hematemesis hemoglobin 10.9 and stable by GI Dr. Burris advised patient to follow up with the GI at [facility] where she had original procedure. The patient discharged home and advised to follow up with the [facility]. she is stable with hemoglobin 10.5 and does not meet the criteria for transfer Explained to the patient discharge plan with the help of animal control officer GIUSEPPE Whitley Consults/Reason for consult GI Dr. Burris Operations or Procedures CT abdomen pelvis without contrast Condition at Discharge: Fair Final Diagnosis/Problems List Acute upper GI bleed hemoglobin 10.9 consult for appreciated, hemoglobin stable at 10.7 Achalasia versus stricture of the esophagus, Dr. Burris advised to transfer the patient to [facility] for higher level of care where she had original surgery History of EGD by Dr. Nona Murphy 2 days back Discharge Disposition: Home Discharge Instruct/Medications Diet: Regular Activity: No Restrictions, As Tolerated Follow Up/Referral: You are advised to follow up with GI Dr at [facility] where you had original surgery for achalasia and stricture of the esophagus for further follow up Scheduled Docusate Sodium (Colace), 100 MG PO DAILY Ferrous Sulfate (Ferrous Sulfate), 325 MG PO MWF Omeprazole (Gnp Omeprazole), 1 TAB PO DAILY, (Reported) Potassium Chloride (Potassium Chloride Cr), 10 MEQ PO DAILY Scheduled PRN Ibuprofen Micronized (Ibuprofen), 600 MG PO Q8HPRN PRN Ondansetron Odt 4MG Tab (Zofran Po), 4 MG PO Q6HPRN PRN 36 (Time Taken for discharge summary 36 minutes) Discharge Statement: "Patient was advised to return to the ER or call 911 if any headaches, dizziness, shortness of breath, chest pain, abdominal pain, bleeding, fevers, or worsening of medical condition. Patient was counseled about treatment plan, medications, possible side effects, patientverbalized understanding. All questions were answered to the best of my ability. This discharge took greater then 30 minutes in planning, reviewing documentation, counseling the patient, and discussing with other team members." ASSESSMENT ASSESSMENT Hospital Course Improved Assessment Acute upper GI bleed hemoglobin 10.9 consult for appreciated, hemoglobin stable at 10.7 Achalasia versus stricture of the esophagus, Dr. Burris advised to transfer the patient to [facility] for higher level of care where she had original surgery History of EGD by Dr. Nona Murphy 2 days back Date of Service: Feb 18, 2025 Billing Provider: BENIGNO FLETCHER MD Common Visit Codes: [id number]/OBS DISCH DAY >30min BENIGNO FLETCHER MD Feb 18, 2025 10:25
[2025-02-18] MEDS ORDERED: POTASSIUM CHLORIDE 40 MEQ, LIDOCAINE 1% (LOCAL ANESTH.) 4 ML in SODIUM CHL 0.9% 250 ML IV ONE (10:30)
[2025-02-18 10:52] VITALS: BP 116/77; PULSE 62; RESP 17; TEMP 98.1; O2SAT 98
[2025-02-18] MEDS: POTASSIUM CHLORIDE 40 MEQ, LIDOCAINE 1% (LOCAL ANESTH.) 4 ML in SODIUM CHL 0.9% 250 ML IV ONE (11:30)
[2025-02-18 14:06] VITALS: BP 108/75; PULSE 69; RESP 16; TEMP 98.4; O2SAT 99
== END 2025-02-18 16:00 | disposition home or self-care (01) | DRG 253 ==
LOC: ER 13:06 → OVERFLOW 14:17 → WEST WING 14:22
PROVIDERS: ADMIT Family Medicine; ATTEND Family Medicine
DX: K92.2 Gastrointestinal hemorrhage, unspecified (principal); K22.0 Achalasia of cardia; K22.2 Esophageal obstruction; Z83.3 Family history of diabetes mellitus
CPT/HCPCS: 36415; 74176; 80048; 80053; 82962; 83735; 84100; 85025; 85610; 85730; 86850; 86900; 86901; 96361; 96374; 99291; G0378; J2003; J2470; J3480